=== PATIENT | female | born 1990 | race African-American/Black ===

== ENCOUNTER 2024-09-17 21:44 | Emergency (ER) | payer OTHER ==
[~2024-09-17] VITALS: Ht 167.6 cm; Wt 76.9 kg
[2024-09-17 21:47] VITALS: O2SAT 100
[2024-09-17 22:22] VITALS: BP 123/72; PULSE 78; RESP 16; TEMP 36.8; O2SAT 99
[2024-09-17] MEDS ORDERED: ACETAMINOPHEN 325MG TABLET PO ONE (23:15)
[2024-09-18 00:35] VITALS: TEMP 98.3
[2024-09-18] MEDS: ACETAMINOPHEN 325MG TABLET PO NR (00:35)
[2024-09-18] MEDS ORDERED: PSEU30CA2 PO (01:30)
[2024-09-18 02:08] LABS: INFLUENZA TYPE A Presumptive Negative (Pres. Neg.); INFLUENZA TYPE B Presumptive Negative (Pres. Neg.)
== END 2024-09-18 02:20 | disposition home or self-care (01) ==
LOC: ER 21:44
DX: B34.9 Viral infection, unspecified (principal); Z90.49 Acquired absence of other specified parts of digestive tract
CPT/HCPCS: 87804; 99283